=== PATIENT | male | born 1965 | race Caucasian/White ===

== ENCOUNTER 2018-08-12 01:12 | Emergency (ER) | payer OTHER ==
[2018-08-12 01:13] VITALS: BMI 35.9
[2018-08-12] MEDS ORDERED: Sodium Chloride 0.9% 1,000 ML IV ONE ×2 (01:46→03:00)
[2018-08-12] MEDS ORDERED: MethylPREDNISolone 40 mg Vial IVP STA (01:46)
[2018-08-12] MEDS: Albuterol 0.083% Inhal Sol (2.5 mg/3 mL) UD INH SCH ×2 (02:05→02:25)
[2018-08-12 02:11] LABS: BASO % 0.2 % (0.0-2.0); EOS % 0.3 % (0.0-4.0); HEMOGLOBIN 15.7 g/dL (12.0-18.0); LYMPH # 0.4 K/uL (1.0-4.3); MEAN CELL VOLUME 89.6 fL (80.0-94.0); MEAN CORPUSCULAR HEMOGLOBIN 30.3 pg (27.0-31.0); MEAN CORPUSCULAR HGB CONC 33.8 g/dL (33.0-37.0); MEAN PLATELET VOLUME 7.5 fL (7.2-11.7); MONO # 0.5 K/uL (0.0-0.8); MONO % 5.3 % (0.0-10.0); NEUT # 8.6 K/uL (1.8-7.0); NEUT % 90.2 % (50.0-75.0); PLATELET COUNT 165 K/uL (130-400); RBC 5.18 Mil/uL (4.40-5.90); RED CELL DISTRIBUTION WIDTH 13.1 % (11.5-14.5); WHITE BLOOD COUNT 9.6 K/uL (4.8-10.8)
[2018-08-12] MEDS ORDERED: Albuterol 0.083% Inhal Sol (2.5 mg/3 mL) UD ONE (02:23)
[2018-08-12] MEDS ORDERED: Sodium Chloride 0.9% 250 ML IV ONE (02:24)
[2018-08-12 02:27] LABS: ALB/GLOB RATIO 1.4 (1.0-2.1); ALBUMIN 4.1 g/dL (3.5-5.0); ALT/SGPT 331 U/L (21-72); AST/SGOT 709 U/L (17-59); BLOOD UREA NITROGEN 13 mg/dL (9-20); CALCIUM 8.7 mg/dl (8.6-10.4); GFR NON-AFRICAN AMERICAN > 60
[2018-08-12 02:34] LABS: BANDS 9 % (0-2); LYMPHOCYTE 3 % (20-40); MONOCYTE 1 % (0-10); NEUTROPHIL 85 % (50-75); PLATELET ESTIMATE NORMAL (NORMAL); REACTIVE LYMPHOCYTES 2 % (0-0); TOTAL CELLS COUNTED 100
--- NOTE | 2018-08-12 02:51 | C.PDOC ---
History Of Present Illness 53 year old male with PMHx of asthma presents to the ED c/o SOB. Patient reports he twisted his upper back yesterday and was feeling pain radiating towards his chest, pain worsens with movement. Patient states tonight pain worsened and is associated with chest tightness and SOB. Patient states symptoms are similar to past asthma attack although no recent exacerbations. Pt did not take pain medication at home and recently ran out of his inhaler as well. Patient denies fever, chills, palpitations, headache, dizziness, rash, diaphoresis, weakness, numbness, abdominal pain, vomiting, diarrhea, direct trauma, prolonged travel, recent immobilization. Time Seen by Provider: 08/12/18 01:29 Chief Complaint (Nursing): Shortness Of Breath History Per: Patient History/Exam Limitations: no limitations Onset/Duration Of Symptoms: Days Current Symptoms Are (Timing): Still Present Initiating Event: Upper Respiratory Illness Quality: Tightness Exacerbating Factor(s): Exertion Current Respiratory Medications: See Home Med List Associated Symptoms: Chest Pain Recent travel outside of the [place]: No Additional History Per: Patient Past Medical History Reviewed: Historical Data, Nursing Documentation, Vital Signs Vital Signs: Last Vital Signs Temp 98.4 F 08/12/18 01:21 Pulse 125 H 08/12/18 01:21 Resp 20 08/12/18 01:35 BP 137/70 08/12/18 01:21 Pulse Ox 97 08/12/18 01:35 - Medical History PMH: Asthma, Back Problems, HTN, Kidney Stones, Peripheral Edema (SOMETIMES), Pneumonia (4 YEARS AGO) Surgical History: Endoscopy, Tonsillectomy - [facility] Procedures CORONAR ARTERIOGR-2 CATH (01/28/15) DESTRUCT JOINT LES NEC (11/28/13) LEFT HEART CARDIAC CATH (01/28/15) LT HEART ANGIOCARDIOGRAM (01/28/15) REPAIR OF HAMMER TOE (11/28/13) Family History: States: Unknown Family Hx - Social History Hx Alcohol Use: No Hx Substance Use: No - Immunization History Hx Tetanus Toxoid Vaccination: Yes Hx Influenza Vaccination: Yes Hx Pneumococcal Vaccination: Yes Review Of Systems Constitutional: Negative for: Fever, Chills Eyes: Negative for: Vision Change Cardiovascular: Positive for: Chest Pain. Negative for: Palpitations Respiratory: Positive for: Shortness of Breath. Negative for: Sputum, Wheezing Gastrointestinal: Negative for: Nausea, Vomiting, Abdominal Pain Genitourinary: Negative for: Incontinence Musculoskeletal: Positive for: Back Pain Skin: Negative for: Rash Neurological: Negative for: Weakness, Numbness, Headache Physical Exam - Physical Exam Appears: Non-toxic, No Acute Distress Skin: Normal Color, Warm, Dry Head: Atraumatic, Normacephalic Eye(s): bilateral: Normal Inspection Neck: Normal ROM, Supple Chest: Symmetrical, Tenderness (right intercostal area) Cardiovascular: Rhythm Regular Respiratory: Decreased Breath Sounds (minimally), No Rales, No Rhonchi, No Wheezing Gastrointestinal/Abdominal: Normal Exam, Soft, No Tenderness, No Guarding, No Rebound, No Other (RUQ tenderness) Back: Other (right upper back tenderness) Extremity: Normal ROM, No Tenderness, No Swelling Neurological/Psych: Oriented x3, Normal Speech, Normal Cognition Gait: Steady ED Course And Treatment - Laboratory Results Result Diagrams: 08/12/18 02:09 08/12/18 02:09 Lab Results: D-Dimer, Quantitative 1170 ng/mlDDU (0-243) H 08/12/18 02:09 Troponin I 0.0130 ng/mL (0.00-0.120) 08/12/18 02:09 Total Bilirubin 3.8 mg/dL (0.2-1.3) H 08/12/18 02:09 AST 709 U/L (17-59) H 08/12/18 02:09 ALT 331 U/L (21-72) H D 08/12/18 02:09 Alkaline Phosphatase 244 U/L (38-126) H 08/12/18 02:09 Total Protein 7.1 g/dL (6.3-8.3) 08/12/18 02:09 Albumin 4.1 g/dL (3.5-5.0) 08/12/18 02:09 Globulin 3.0 gm/dL (2.2-3.9) 08/12/18 02:09 Albumin/Globulin Ratio 1.4 (1.0-2.1) 08/12/18 02:09 ECG: Interpreted By Me, Viewed By Me ECG Rhythm: Sinus Tachycardia (at 121) ECG Interpretation: No Acute Changes O2 Sat by Pulse Oximetry: 97 (ON RA) Pulse Ox Interpretation: Normal - Other Rad right ribs w Chest X-Ray: Interpreted by Me, Viewed By Me Interpretation: No acute findings - CT Scan/US CTA chest Other Rad Studies (CT/US): Read By Radiologist, Radiology Report Reviewed CT/US Interpretation: CTA OF THE CHEST WITH IV CONTRAST. CLINICAL HISTORY: Shortness of breath. Palpitations. TECHNIQUE: Axial and reformatted sagittal and coronal images of the chest obtained after bolus IV contrast administration. FINDINGS: Bilateral basilar atelectatic pulmonary changes. Normal enhancement of the main pulmonary artery and right and left pulmonary arteries. Normal enhancement of the bilateral peripheral pulmonary arteries. There is no demonstrated pulmonary embolism. Normal thoracic aorta and visualized great vessels. There is no demonstrated aortic dissection. Normal heart and pericardium. Normal mediastinum. Normal hilar regions. Normal visualized trachea and bronchi. The lungs are well expanded. Normal pulmonary parenchyma. Normal pleura. Normal chest wall structures. Normal osseous structures. 3.5 cm left renal cyst. 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 IMPRESSION: No demonstrated pulmonary embolism or arterial dissection. . Electronically signed on Aug 12, 2018 3:53:17 AM EST by: Chela Barrios M.D., Certified by ABR, MSK, Neuroradiology Progress Note: Plan: DDx incl but not limited to: CACS, PE, Aortic dissection, Asthma, Rib fx, pneumothorax. - Labs. -albuterol nebs x 2. - Solumedrol 125 mg IVP. - Toradol 30 mg iVP. - CXR with Rt Ribs. Labs reviewed pt with elevated dimer , now with low BP , no orthostatic changes. IVF NS bolus ordered x 2 L and CTA chest. Chest CTA official report was reviewed, and d/w pt. Pt reports feeling much better, no longerSOB, no orthostasis. Fully ambulatory without dyspnea, CP or dizziness. Pt will be d/c home , advised to keep PMD / bariatric surgeon appointment nxt week Disposition - Disposition Referrals: Non [facility] Provider, [Primary Care Provider] - Disposition: HOME/ ROUTINE Disposition Time: 05:43 Condition: STABLE Additional Instructions: Please follow up with your PMD today Take medications as needed Return to ER if worse Prescriptions: Albuterol HFA [Ventolin HFA 90 mcg/actuation (8 g)] 2 puff IH [id number] #1 inhaler predniSONE [Prednisone] 40 mg PO DAILY #10 tab traMADol [Ultram] 50 mg PO TID #14 tab Instructions: Shortness of Breath (Dyspnea) (DC) Forms: [employer] ([place]) - Clinical Impression Clinical Impression: Dyspnea, Asthma exacerbation, Strain, back - PA / TRICHOLOGIST / Resident Statement MD/DO has reviewed & agrees with the documentation as recorded. - Scribe Statement The provider has reviewed the documentation as recorded by the Scribe Clyde Maharaj All medical record entries made by the Scribe were at my direction and per sonally dictated by me. I have reviewed the chart and agree that the record accurately reflects my personal performance of the history, physical exam, medical decision making, and the department course for this patient. I have also personally directed, reviewed, and agree with the discharge instructions and disposition.
[2018-08-12] MEDS ORDERED: Potassium Chloride 20 mEq ER Tab PO STA ×2 (02:52→05:37)
[2018-08-12] MEDS ORDERED: Iodixanol 320 MG/ML 100 ML BOTTLE IV ONE (03:06)
[2018-08-12] MEDS ORDERED: Potassium Chloride 20 mEq ER Tab PO ONE ×2 (03:11→05:57)
[2018-08-12 05:40] VITALS: BP 114/67; PULSE 93; RESP 18; TEMP -98.3; O2SAT 98
--- NOTE | 2018-08-12 08:38 | RAD ---
Date of service: 05/22/2016 08/12/2018 PROCEDURE: Radiographs of the Chest and Right Ribs. HISTORY: fall, pain COMPARISON: None available. TECHNIQUE: Frontal radiograph of the chest and multiple oblique radiographs of the right ribs were obtained. FINDINGS: RIGHT RIBS: No fracture or focal lesion visualized. LUNGS: Clear. PLEURA: No pneumothorax or pleural fluid. CARDIOVASCULAR: Normal cardiac size. No pulmonary vascular congestion. No aortic atherosclerotic calcification present OTHER FINDINGS: None. IMPRESSION: Unremarkable radiographs of the chest and right ribs. No right rib fracture.
--- NOTE | 2018-08-12 12:27 | CT ---
Date of service: 08/12/2018 CTA chest PE protocol Indication: SOB, palpitations, elevated Dimer Technique: Contiguous axial images were obtained through the chest with intravenous contrast enhancement. Sagittal and coronal reconstructions were generated and reviewed. This CT exam was performed using 1 or more of the following dose reduction techniques: Automated exposure control, adjustment of the MAA and/or kV according to patient size, and/or use of iterative reconstruction technique. IV contrast: 100 mL Visipaque 320 IV Radiation dose (DLP): 611.17 MGy-cm. Comparison: Right rib/chest x-ray performed 08/12/18, chest x-ray performed 05/22/16 Findings: Visualized portions of the inferior thyroid gland appear unremarkable. The mediastinal and hilar vascular structures appear within normal limits. The heart appears within normal limits of size. There is suboptimal opacification of the pulmonary arteries due to missed bolus of the intravenous contrast limiting evaluation for pulmonary embolus (main pulmonary artery less than 150 HU). Given this limitation, there are no visible intraluminal filling defects within the central pulmonary arteries to suggest central pulmonary embolism. No focal consolidation. No pleural effusion. No pneumothorax. No suspicious pulmonary nodules measuring greater than 5 mm. Limited visualized portions of the upper abdomen: Left renal cysts. Postsurgical gastric changes. Degenerative changes of the spine. Impression: There is suboptimal opacification of the pulmonary arteries due to missed bolus of the intravenous contrast limiting evaluation for pulmonary embolus (main pulmonary artery less than 150 HU). Given this limitation, there are no visible intraluminal filling defects within the central pulmonary arteries to suggest central pulmonary embolism. Limited visualized portions of the upper abdomen: Left renal cysts. Postsurgical gastric changes. Preliminary impression was provided by [facility]. Study marked for PA review.
--- NOTE | 2018-08-14 05:59 | CARD ---
APPROVED REPORT Date of service: 08/12/2018 EKG Measurement Heart [id number] <Conclusion> Sinus tachycardia Otherwise normal ECG
== END 2018-08-12 06:03 | disposition home or self-care (01) ==
LOC: SUPCPDRO 01:12 → C.ER 01:12
DX: J45.901 Unspecified asthma with (acute) exacerbation (principal); S29.012A Strain of muscle and tendon of back wall of thorax, initial encounter; X50.9XXA Other and unspecified overexertion or strenuous movements or postures, initial encounter
CPT/HCPCS: 71101; 71275; 80053; 84484; 85025; 85378; 93005; 96361; 96374; 96375; 99285; J1885; J2920; J7030; Q9967